=== PATIENT | female | born 1970 | race Caucasian/White ===

== ENCOUNTER 2018-05-27 18:05 | Emergency (ER) | payer OTHER, MEDICAID ==
[2018-05-27] MEDS: HYDROCODONE/APAP (5/325) TAB PO (19:26)
[2018-05-27] MEDS: IBUPROFEN 600 MG TAB PO (19:26)
[2018-05-27 19:31] LABS: ADD MAN DIFF? NO
[2018-05-27 19:35] LABS: WHITE BLOOD COUNT 10.9 10^3/ul (4.8-10.8)
[2018-05-27 19:35] LABS: BASOPHILS % 0.3 % (0.0-2.0); EOSINOPHILS # 0.1 10^3/ul (0.0-0.5); HEMATOCRIT 43.8 % (37.0-47.0); HEMOGLOBIN 13.7 g/dl (12.0-16.0); LYMPHOCYTES # 2.9 10^3/ul (0.8-2.9); LYMPHOCYTES % 26.4 % (15.0-51.0); MEAN CORPUSCULAR HEMOGLOBIN 26.5 pg (29.0-33.0); MEAN CORPUSCULAR HGB CONC 31.3 g/dl (32.0-37.0); MEAN CORPUSCULAR VOLUME 84.7 fl (82.0-101.0); MEAN PLATELET VOLUME 12.1 fl (7.4-10.4); MONOCYTE # 0.4 10^3/ul (0.3-0.9); MONOCYTES % 3.8 % (0.0-11.0); NEUTROPHIL # 7.4 10^3/ul (1.6-7.5); PLATELET COUNT 248 10^3/UL (140-415); RED BLOOD COUNT 5.17 10^6/ul (4.20-5.40); RED CELL DISTRIBUTION WIDTH 13.2 % (11.5-14.5)
[2018-05-27 19:49] LABS: ANION GAP 14 (5-13); BLOOD UREA NITROGEN 15 mg/dl (7-20); CALCIUM 9.3 mg/dl (8.4-10.2); CARBON DIOXIDE 26 mmol/L (21-31); CHLORIDE 95 mmol/L (97-110); CREATININE 0.67 mg/dl (0.44-1.00); POTASSIUM 4.8 mmol/L (3.5-5.1); SODIUM 135 mmol/L (135-144)
[2018-05-27 20:00] LABS: GLUCOSE 686 mg/dl (70-220)
[2018-05-27] MEDS: SOD CHLORIDE 0.9% 2,000 ML IV (20:28)
[2018-05-27] MEDS: INSULIN LISPRO 100 UNIT/ML VIAL SC (20:39)
== END 2018-05-27 23:25 | disposition home or self-care (01) ==
LOC: E/R 18:05
DX: M79.672 Pain in left foot (principal); E11.65 Type 2 diabetes mellitus with hyperglycemia; R40.2252 Coma scale, best verbal response, oriented, at arrival to emergency department; R40.2362 Coma scale, best motor response, obeys commands, at arrival to emergency department; R40.2412 Glasgow coma scale score 13-15, at arrival to emergency department
CPT/HCPCS: 36415; 73630-LT; 80048; 82962; 85025; 93005; 96360; 96361; 96372; 99285-25

== ENCOUNTER 2018-07-02 14:26 | Observation (INO) | payer OTHER ==
[2018-07-02] MEDS ORDERED: NITROGLYCERIN (SL) 0.4 MG TAB SL ×2 (15:00→20:30)
[2018-07-02 15:10] LABS: ADD MAN DIFF? NO
[2018-07-02 15:18] LABS: WHITE BLOOD COUNT 11.7 10^3/ul (4.8-10.8)
[2018-07-02 15:18] LABS: BASOPHILS % 0.3 % (0.0-2.0); EOSINOPHILS # 0.1 10^3/ul (0.0-0.5); EOSINOPHILS % 1.1 % (0.0-7.0); HEMATOCRIT 42.9 % (37.0-47.0); HEMOGLOBIN 13.6 g/dl (12.0-16.0); LYMPHOCYTES # 3.7 10^3/ul (0.8-2.9); LYMPHOCYTES % 31.7 % (15.0-51.0); MEAN CORPUSCULAR HEMOGLOBIN 26.3 pg (29.0-33.0); MEAN CORPUSCULAR HGB CONC 31.7 g/dl (32.0-37.0); MEAN CORPUSCULAR VOLUME 82.8 fl (82.0-101.0); MEAN PLATELET VOLUME 11.5 fl (7.4-10.4); MONOCYTE # 0.4 10^3/ul (0.3-0.9); MONOCYTES % 3.2 % (0.0-11.0); NEUTROPHIL # 7.4 10^3/ul (1.6-7.5); NEUTROPHILS % 63.1 % (39.0-77.0); PLATELET COUNT 264 10^3/UL (140-415); RED BLOOD COUNT 5.18 10^6/ul (4.20-5.40); RED CELL DISTRIBUTION WIDTH 13.4 % (11.5-14.5)
[2018-07-02] MEDS: SOD CHLORIDE 0.9% 1,000 ML IV (15:32)
[2018-07-02 15:38] LABS: ALANINE AMINOTRANSFERASE 24 IU/L (13-69); ALBUMIN/GLOBULIN RATIO 1.21; ALKALINE PHOSPHATASE 120 IU/L (42-121); ANION GAP 10 (5-13); ASPARTATE AMINO TRANSFERASE 23 IU/L (15-46); BILIRUBIN,INDIRECT 0.2 mg/dl (0-1.1); BILIRUBIN,TOTAL 0.2 mg/dl (0.2-1.3); BLOOD UREA NITROGEN 14 mg/dl (7-20); CALCIUM 9.1 mg/dl (8.4-10.2); CARBON DIOXIDE 28 mmol/L (21-31); CHLORIDE 99 mmol/L (97-110); CREATINE KINASE 24 IU/L (23-200); CREATININE 0.39 mg/dl (0.44-1.00); Estimated GFR > 60 mL/min (>60); GLUCOSE 334 mg/dl (70-220); INR 0.88; LIPASE 60 U/L (23-300); PARTIAL THROMBOPLASTIN TIME 27.5 Sec (23.0-35.0); POTASSIUM 3.9 mmol/L (3.5-5.1); PT RATIO 0.9; SODIUM 137 mmol/L (135-144); TOTAL PROTEIN 7.3 g/dl (6.1-8.1)
[2018-07-02] MEDS: ASPIRIN 325 MG TAB PO (15:39)
[2018-07-02 15:49] LABS: B-TYPE NATRIURETIC PEPTIDE 48 PG/ML (0-125); CK INDEX 0.9; CK-MB < 0.22 ng/ml (0.0-2.4); TROPONIN-I < 0.012 ng/ml (0.000-0.120)
[2018-07-02] MEDS: IOHEXOL 100 ML (16:11)
[2018-07-02] MEDS: SOD CHLORIDE 0.9% 100 ML (16:11)
[2018-07-02] MEDS: ONDANSETRON 4 MG INJ IV ×2 (17:37→20:04)
[2018-07-02] MEDS: morphine 4 MG/ML VIAL IV (17:37)
[2018-07-02 19:53] LABS: TROPONIN-I < 0.012 ng/ml (0.000-0.120)
[2018-07-02] MEDS ORDERED: ACETAMINOPHEN 325 MG TAB PO (20:00)
[2018-07-02] MEDS ORDERED: ONDANSETRON 4 MG INJ IV ×2 (20:00→20:30)
[2018-07-02] MEDS: HYDROmorphONE 1 MG/ML SYG IV (20:04)
[2018-07-02] MEDS ORDERED: morphine 2 MG INJ IV (20:30)
[2018-07-02] MEDS ORDERED: DOCUSATE SODIUM 100 MG CAP PO (20:30)
[2018-07-02] MEDS ORDERED: BISACODYL (EC) 5 MG TAB PO (20:30)
[2018-07-02] MEDS ORDERED: NACL 0.9% 3 ML SYG IV (20:30)
[2018-07-02] MEDS: LIDOCAINE/MYLANTA 40 ML BTL PO (20:30)
[2018-07-02] MEDS ORDERED: GLUCOSE GEL 15 GRAM TUBE BUCCAL (23:00)
[2018-07-02] MEDS ORDERED: GLUCOSE GEL 15 GRAM TUBE PO ×2 (23:00)
[2018-07-02] MEDS ORDERED: DEXTROSE 50% 50 ML SYRINGE IV ×2 (23:00)
[2018-07-02] MEDS ORDERED: GLUCAGON 1 MG INJ IM (23:00)
[2018-07-03] MEDS: ENOXAPARIN 40 MG/0.4 ML SYG SC ×2 (00:30→08:20)
[2018-07-03] MEDS: INSULIN ASPART [NOVOLOG] 3 ML PEN SC ×4 (00:31→17:13)
[2018-07-03 01:29] LABS: CREATINE KINASE 21 IU/L (23-200)
[2018-07-03 01:41] LABS: CK-MB < 0.22 ng/ml (0.0-2.4); TROPONIN-I < 0.012 ng/ml (0.000-0.120)
[2018-07-03] MEDS: ACCU-CHEK XX (02:00)
[2018-07-03] MEDS ORDERED: INFLUENZA VIRUS VACCINE 0.5 ML (DISPENSING) IM* (04:00)
[2018-07-03] MEDS ORDERED: hydrALAzine 20 MG INJ IV (04:00)
[2018-07-03] MEDS: ACETAMINOPHEN 325 MG TAB PO (05:46)
[2018-07-03] MEDS: KETOROLAC 30 MG INJ IV (06:00)
[2018-07-03 06:20] LABS: ADD MAN DIFF? NO
[2018-07-03 06:26] LABS: BASOPHILS % 0.2 % (0.0-2.0); EOSINOPHILS # 0.1 10^3/ul (0.0-0.5); EOSINOPHILS % 0.9 % (0.0-7.0); HEMATOCRIT 42.8 % (37.0-47.0); HEMOGLOBIN 13.3 g/dl (12.0-16.0); LYMPHOCYTES # 4.9 10^3/ul (0.8-2.9); LYMPHOCYTES % 33.5 % (15.0-51.0); MEAN CORPUSCULAR HEMOGLOBIN 26.5 pg (29.0-33.0); MEAN CORPUSCULAR HGB CONC 31.1 g/dl (32.0-37.0); MEAN CORPUSCULAR VOLUME 85.3 fl (82.0-101.0); MEAN PLATELET VOLUME 11.5 fl (7.4-10.4); MONOCYTE # 0.5 10^3/ul (0.3-0.9); MONOCYTES % 3.6 % (0.0-11.0); NEUTROPHIL # 8.9 10^3/ul (1.6-7.5); NEUTROPHILS % 61.2 % (39.0-77.0); PLATELET COUNT 283 10^3/UL (140-415); RED BLOOD COUNT 5.02 10^6/ul (4.20-5.40); RED CELL DISTRIBUTION WIDTH 13.5 % (11.5-14.5)
[2018-07-03 06:26] LABS: WHITE BLOOD COUNT 14.6 10^3/ul (4.8-10.8)
[2018-07-03 06:53] LABS: CREATINE KINASE 21 IU/L (23-200)
[2018-07-03 06:56] LABS: ALANINE AMINOTRANSFERASE 23 IU/L (13-69); ALBUMIN 3.8 g/dl (3.3-4.9); ALBUMIN/GLOBULIN RATIO 1.18; ALKALINE PHOSPHATASE 108 IU/L (42-121); ANION GAP 9 (5-13); ASPARTATE AMINO TRANSFERASE 24 IU/L (15-46); BILIRUBIN,INDIRECT 0.3 mg/dl (0-1.1); BILIRUBIN,TOTAL 0.3 mg/dl (0.2-1.3); BLOOD UREA NITROGEN 15 mg/dl (7-20); CARBON DIOXIDE 30 mmol/L (21-31); CHLORIDE 100 mmol/L (97-110); CREATININE 0.39 mg/dl (0.44-1.00); Estimated GFR > 60 mL/min (>60); GLUCOSE 316 mg/dl (70-220); MAGNESIUM 1.9 mg/dl (1.7-2.5); POTASSIUM 4.4 mmol/L (3.5-5.1); SODIUM 139 mmol/L (135-144)
[2018-07-03 07:06] LABS: CK-MB < 0.22 ng/ml (0.0-2.4); TROPONIN-I < 0.012 ng/ml (0.000-0.120)
[2018-07-03 07:49] LABS: HEMOGLOBIN A1C 12.6 % (0-5.9)
[2018-07-03] MEDS ORDERED: INSULIN ASPART [NOVOLOG] 3 ML PEN SC (07:55)
[2018-07-03] MEDS: INFLUENZA VIRUS VACCINE 0.5 ML (DISPENSING) IM* (10:00)
[2018-07-04] MEDS ORDERED: CEFAZOLIN 1 GM INJ (19:06)
[2018-07-04] MEDS ORDERED: ONDANSETRON 4 MG INJ (19:06)
[2018-07-04] MEDS ORDERED: METOCLOPRAMIDE 10 MG INJ (19:06)
[2018-07-04] MEDS ORDERED: FENTAnyl 50 MCG/ML VIAL (19:06)
[2018-07-04] MEDS ORDERED: PROPOFOL 20 ML (19:06)
[2018-07-04] MEDS ORDERED: MIDAZOLAM 1 MG/ML 2 ML INJ (19:06)
== END 2018-07-03 19:05 | disposition home or self-care (01) ==
LOC: E/R 14:26 → TEL 20:01
DX: R07.89 Other chest pain (principal); I10 Essential (primary) hypertension; E11.9 Type 2 diabetes mellitus without complications; Z79.84 Long term (current) use of oral hypoglycemic drugs; E66.01 Morbid (severe) obesity due to excess calories; Z68.44 Body mass index [BMI] 60.0-69.9, adult
CPT/HCPCS: 71045; 71275; 80053; 82550; 82553; 82962; 83036; 83690; 83735; 83880; 84443; 84484; 85025; 85378; 85610; 85730; 90686; 93005; 93970; 96374; 96375; 99285-25; G0378

== ENCOUNTER 2019-01-28 16:01 | Emergency (ER) | payer OTHER ==
[2019-01-28] MEDS: ONDANSETRON 4 MG INJ IV (17:18)
[2019-01-28 17:20] LABS: ADD MAN DIFF? NO
[2019-01-28 17:24] LABS: URINE BLOOD (Dip) POC Trace-intact (NEGATIVE); URINE GLUCOSE (Dip) POC >=1.0% (NEGATIVE); URINE KETONES (Dip) POC Negative (NEGATIVE); URINE LEUKOCYTE EST (Dip) POC Trace (NEGATIVE); URINE NITRITE (Dip) POC Negative (NEGATIVE); URINE TOTAL PROTEIN POC Trace (NEGATIVE)
[2019-01-28 17:24] LABS: URINE PH (Dip) POC 5.5 (5.0-8.5)
[2019-01-28 17:28] LABS: BASOPHIL # 0.1 10^3/ul (0.0-0.1); BASOPHILS % 0.5 % (0.0-2.0); EOSINOPHILS # 0.2 10^3/ul (0.0-0.5); EOSINOPHILS % 1.6 % (0.0-7.0); HEMATOCRIT 44.4 % (37.0-47.0); HEMOGLOBIN 13.8 g/dl (12.0-16.0); LYMPHOCYTES # 3.8 10^3/ul (0.8-2.9); LYMPHOCYTES % 34.6 % (15.0-51.0); MEAN CORPUSCULAR HEMOGLOBIN 26.2 pg (29.0-33.0); MEAN CORPUSCULAR HGB CONC 31.1 g/dl (32.0-37.0); MEAN CORPUSCULAR VOLUME 84.3 fl (82.0-101.0); MEAN PLATELET VOLUME 11.5 fl (7.4-10.4); MONOCYTE # 0.5 10^3/ul (0.3-0.9); MONOCYTES % 4.1 % (0.0-11.0); NEUTROPHIL # 6.4 10^3/ul (1.6-7.5); NEUTROPHILS % 58.6 % (39.0-77.0); PLATELET COUNT 266 10^3/UL (140-415); RED BLOOD COUNT 5.27 10^6/ul (4.20-5.40); RED CELL DISTRIBUTION WIDTH 13.2 % (11.5-14.5)
[2019-01-28 17:47] LABS: ALANINE AMINOTRANSFERASE 18 IU/L (13-69); ALBUMIN 3.9 g/dl (3.3-4.9); ALBUMIN/GLOBULIN RATIO 1.02; ALKALINE PHOSPHATASE 143 IU/L (42-121); ANION GAP 9 (5-13); ASPARTATE AMINO TRANSFERASE 15 IU/L (15-46); BILIRUBIN,INDIRECT 0.4 mg/dl (0-1.1); BILIRUBIN,TOTAL 0.4 mg/dl (0.2-1.3); BLOOD UREA NITROGEN 12 mg/dl (7-20); CALCIUM 8.8 mg/dl (8.4-10.2); CARBON DIOXIDE 29 mmol/L (21-31); CHLORIDE 97 mmol/L (97-110); CREATININE 0.62 mg/dl (0.44-1.00); Estimated GFR > 60 mL/min (>60); LIPASE 93 U/L (23-300); POTASSIUM 4.8 mmol/L (3.5-5.1); SODIUM 135 mmol/L (135-144); TOTAL PROTEIN 7.7 g/dl (6.1-8.1)
[2019-01-28 17:52] LABS: GLUCOSE 529 mg/dl (70-220)
[2019-01-28] MEDS: SOD CHLORIDE 0.9% 1,000 ML IV (18:47)
[2019-01-28] MEDS: INSULIN LISPRO 100 UNIT/ML VIAL SC (18:48)
[2019-01-28] MEDS: KETOROLAC 30 MG INJ IV (19:07)
[2019-01-28] MEDS ORDERED: ACCU-CHEK XX (20:30)
== END 2019-01-28 20:11 | disposition home or self-care (01) ==
LOC: E/R 16:01
DX: K59.00 Constipation, unspecified (principal); I10 Essential (primary) hypertension; E11.65 Type 2 diabetes mellitus with hyperglycemia; Z79.84 Long term (current) use of oral hypoglycemic drugs
CPT/HCPCS: 36415; 74176; 80053; 81003; 81025; 82962; 83690; 84702; 85025; 96361; 96372; 96374; 96375; 99285-25

== ENCOUNTER 2019-04-21 12:14 | Emergency (ER) | payer OTHER ==
[2019-04-21 14:08] LABS: URINE BLOOD (Dip) POC Trace-intact (NEGATIVE); URINE KETONES (Dip) POC 1+ (NEGATIVE); URINE LEUKOCYTE EST (Dip) POC Trace (NEGATIVE); URINE NITRITE (Dip) POC Negative (NEGATIVE); URINE TOTAL PROTEIN POC 1+ (NEGATIVE)
[2019-04-21 14:08] LABS: URINE PH (Dip) POC 5.5 (5.0-8.5)
[2019-04-21] MEDS: ONDANSETRON (ODT) 4 MG TAB ODT (14:10)
[2019-04-21] MEDS: HYDROCODONE/APAP (5/325) TAB PO (14:10)
[2019-04-21] MEDS: KETOROLAC 30 MG INJ IM (14:19)
[2019-04-21 14:37] LABS: ADD MAN DIFF? NO
[2019-04-21 14:42] LABS: WHITE BLOOD COUNT 13.5 10^3/ul (4.8-10.8)
[2019-04-21 14:42] LABS: BASOPHIL # 0.1 10^3/ul (0.0-0.1); BASOPHILS % 0.4 % (0.0-2.0); EOSINOPHILS # 0.2 10^3/ul (0.0-0.5); EOSINOPHILS % 1.5 % (0.0-7.0); HEMATOCRIT 46.2 % (37.0-47.0); HEMOGLOBIN 14.2 g/dl (12.0-16.0); LYMPHOCYTES # 4.3 10^3/ul (0.8-2.9); LYMPHOCYTES % 31.8 % (15.0-51.0); MEAN CORPUSCULAR HEMOGLOBIN 26.1 pg (29.0-33.0); MEAN CORPUSCULAR HGB CONC 30.7 g/dl (32.0-37.0); MEAN CORPUSCULAR VOLUME 84.9 fl (82.0-101.0); MEAN PLATELET VOLUME 11.9 fl (7.4-10.4); MONOCYTE # 0.5 10^3/ul (0.3-0.9); MONOCYTES % 3.4 % (0.0-11.0); NEUTROPHIL # 8.4 10^3/ul (1.6-7.5); NEUTROPHILS % 62.4 % (39.0-77.0); PLATELET COUNT 279 10^3/UL (140-415); RED BLOOD COUNT 5.44 10^6/ul (4.20-5.40); RED CELL DISTRIBUTION WIDTH 13.5 % (11.5-14.5)
[2019-04-21 15:22] LABS: ANION GAP 8 (5-13); BLOOD UREA NITROGEN 16 mg/dl (7-20); CALCIUM 9.5 mg/dl (8.4-10.2); CARBON DIOXIDE 32 mmol/L (21-31); CHLORIDE 96 mmol/L (97-110); CREATININE 0.47 mg/dl (0.44-1.00); Estimated GFR > 60 mL/min (>60); SODIUM 136 mmol/L (135-144)
[2019-04-21 15:25] LABS: GLUCOSE 432 mg/dl (70-220)
== END 2019-04-21 15:44 | disposition home or self-care (01) ==
LOC: FTE 12:14
DX: G44.209 Tension-type headache, unspecified, not intractable (principal); I10 Essential (primary) hypertension; E11.9 Type 2 diabetes mellitus without complications; Z79.84 Long term (current) use of oral hypoglycemic drugs
CPT/HCPCS: 80048; 81003; 81025; 85025; 96372; 99284-25